=== PATIENT | male | born 1960 | race Caucasian/White ===

== ENCOUNTER 2023-01-22 18:12 | Emergency (ER) | payer BC ==
[~2023-01-22] VITALS: Ht 157.5 cm; Wt 104.3 kg
--- NOTE | 2023-01-22 19:05 | NUR ---
patient taken to ct via [facility]
--- NOTE | 2023-01-22 19:24 | NUR ---
JULES TURNER [facility] CALLED FOR HIGHER LEVEL OF CARE.
--- NOTE | 2023-01-22 20:01 | NUR ---
KENYETTA PAINTING AT PT'S BEDSIDE FOR SUTURES TO SCALP
--- NOTE | 2023-01-22 20:20 | NUR ---
Patient does not wish to proceed with medical care recommended by Dr. ESQUEDA. Patient given information related to possible complications, up to and including , which could occur as a result of leaving the hospital at this time. Patient verbalizes understanding of risks involved due to leaving against medical advice. Patient has signed AMA form.
[2023-01-22 20:44] VITALS: BP 155/105
== END 2023-01-22 20:20 | disposition left against medical advice (07) ==
LOC: ER 18:15
DX: S01.21XA Laceration without foreign body of nose, initial encounter (principal); S05.11XA Contusion of eyeball and orbital tissues, right eye, initial encounter; T15.91XA Foreign body on external eye, part unspecified, right eye, initial encounter; E66.01 Morbid (severe) obesity due to excess calories; E11.9 Type 2 diabetes mellitus without complications; Z68.41 Body mass index [BMI] 40.0-44.9, adult; Z94.7 Corneal transplant status; W18.30XA Fall on same level, unspecified, initial encounter; Y93.89 Activity, other specified; Y92.89 Other specified places as the place of occurrence of the external cause; Y99.8 Other external cause status
CPT/HCPCS: 99284; 70480; 65205; 12011; A6410